=== PATIENT | female | born 1995 | race Caucasian/White ===

== ENCOUNTER 2017-01-01 10:36 | Emergency (ER) | payer SELFPAY ==
[~2017-01-01] VITALS: Ht 160 cm; Wt 54.4 kg
== END 2017-01-01 10:54 | disposition home or self-care (01) ==
LOC: ED 10:36
DX: Z00.8 Encounter for other general examination (principal)

== ENCOUNTER 2017-08-17 20:12 | Emergency (ER) | payer OTHER ==
[~2017-08-17] VITALS: Ht 160 cm; Wt 54.4 kg
[2017-08-17] MEDS ORDERED: OMEPRAZOLE20 MG PO (23:08)
--- NOTE | 2017-08-18 07:26 | EKG ---
[facility] [address] [facility] [place], [place] [address] Signed Normal sinus rhythm with sinus arrhythmia Incomplete right bundle branch block Borderline ECG No previous ECGs available Confirmed by DEACON KOTHARI MD ([id number] on 08/18/2017 7:25:57 AM Electronically Signed By: DEACON KOTHARI MD 08/18/17 0726 PATIENT NAME: SHANTELL MCELROY Electrocardiogram DATE OF : [birth year] PHYSICIAN: DEACON KOTHARI MD REPORT #: [id number] REPORT IS CONFIDENTIAL AND NOT TO BE RELEASED WITHOUT AUTHORIZATION
== END 2017-08-17 23:22 | disposition home or self-care (01) ==
LOC: ED 20:12
DX: R07.9 Chest pain, unspecified (principal); Z88.0 Allergy status to penicillin; Z88.2 Allergy status to sulfonamides; Z88.1 Allergy status to other antibiotic agents
CPT/HCPCS: 71046; 93005; 93010; 99283

== ENCOUNTER 2018-07-05 08:40 | Inpatient (IN) | payer OTHER ==
[~2018-07-05] VITALS: Ht 162.6 cm; Wt 85.0 kg
[~2018-07-05 08:40] MED LIST: OMEPRAZOLE20 MG PO
--- NOTE | 2018-07-05 11:50 | PR ---
[facility] [address] [facility] [place], [place] [address] Signed Progress Notes IP Datetime Report Generated by CPN: 07/05/2018 11:49 PROGRESS NOTES: [id number] Impression: Normal progression of labor Procedures: Artificial ROM Plan: Continue present management; Anticipate Vaginal Delivery VITAL SIGNS: [id number] Vital Signs: Reviewed; Within Normal Limits EXAM: [id number] Dilatation: 8.0 Effacement: 90 Station: -2 MEMBRANES: [id number] Membrane Status: Intact ROM Note: AROm wihtout difficulty, moderate clear fluid seen Comments: Doing well, without complainht, comfortble with Epidural Fetus A: [id number] FHR Baseline: 150 Variability: Moderate 6-25bpm Accelerations: 15X15 Presentation: Vertex Fetus B: [id number] Signing Physician: Maureen Perez MD Copies: ~ *Electronically Signed* 07/05/18 1149 MAUREEN PEREZ MD PATIENT NAME: SHANTELL BUITRAGO PROGRESS NOTE DATE OF : [birth year] PHYSICIAN: MAUREEN PEREZ MD RPT #: [id number] REPORT IS CONFIDENTIAL AND NOT TO BE RELEASED WITHOUT AUTHORIZATION
--- NOTE | 2018-07-05 15:05 | PR ---
[facility] [facility] [address] [facility] [place], [place] [address] Signed Progress Notes IP Datetime Report Generated by CPN: 07/05/2018 15:04 PROGRESS NOTES: [id number] Impression: Slow Progression of Labor Procedures: Artificial ROM Plan: Continue present management VITAL SIGNS: [id number] Vital Signs: Reviewed; Within Normal Limits EXAM: [id number] Dilatation: 9.5 Effacement: 95 Station: -2 Uterine Contractions: every 2 minutes MEMBRANES: [id number] Membrane Status: Intact ROM Note: AROm wihtout difficulty, moderate clear fluid seen Comments: Comfortable with Epidural; will try position change to see if can get cervix to progress to complete. Fetus A: [id number] FHR Baseline: 150 Variability: Moderate 6-25bpm Accelerations: 15X15 Presentation: Vertex Fetus B: [id number] Signing Physician: Maureen Perez MD Copies: ~ *Electronically Signed* 07/05/18 1504 MAUREEN PEREZ MD PATIENT NAME: SHANTELL BUITRAGO PROGRESS NOTE DATE OF : [birth year] PHYSICIAN: MAUREEN PEREZ MD RPT #: [id number] REPORT IS CONFIDENTIAL AND NOT TO BE RELEASED WITHOUT AUTHORIZATION
--- NOTE | 2018-07-05 15:35 | PR ---
[facility] [address] [facility] [place], [place] [address] Signed Progress Notes IP Datetime Report Generated by CPN: 07/05/2018 15:35 PROGRESS NOTES: [id number] Impression: Normal progression of labor Procedures: Artificial ROM Plan: Anticipate Vaginal Delivery VITAL SIGNS: [id number] Vital Signs: Reviewed; Within Normal Limits EXAM: [id number] Dilatation: 10.0 Effacement: 100 Station: 0 Uterine Contractions: every 2 minutes MEMBRANES: [id number] Membrane Status: Ruptured ROM Note: AROm wihtout difficulty, moderate clear fluid seen Comments: Beginning to push, still comfortable with Epidural Fetus A: [id number] FHR Baseline: 150 Variability: Moderate 6-25bpm Accelerations: 15X15 Presentation: Vertex Fetus B: [id number] Signing Physician: Maureen Perez MD Copies: ~ *Electronically Signed* 07/05/18 1535 MAUREEN PEREZ MD PATIENT NAME: SHANTELL BUITRAGO PROGRESS NOTE DATE OF : [birth year] PHYSICIAN: MAUREEN PEREZ MD RPT #: [id number] REPORT IS CONFIDENTIAL AND NOT TO BE RELEASED WITHOUT AUTHORIZATION
--- NOTE | 2018-07-05 16:04 | PR ---
[facility] [address] [facility] [place], [place] [address] Signed Progress Notes IP Datetime Report Generated by CPN: 07/05/2018 16:04 PROGRESS NOTES: [id number] Impression: Normal progression of labor Procedures: Artificial ROM Plan: Continue present management; Anticipate Vaginal Delivery VITAL SIGNS: [id number] Vital Signs: Reviewed; Within Normal Limits EXAM: [id number] Dilatation: 10.0 Effacement: 0 Station: 1 Uterine Contractions: everyb 2 minutes MEMBRANES: [id number] Membrane Status: Ruptured ROM Note: AROm wihtout difficulty, moderate clear fluid seen Comments: Pushing well, continue observaitona and pushing Fetus A: [id number] FHR Baseline: 150 Variability: Moderate 6-25bpm Accelerations: 15X15 Decelerations: Variable Presentation: Vertex Other Presentation: KYRA Fetus B: [id number] Signing Physician: Lei Perez MD Copies: ~ *Electronically Signed* 07/05/18 1604 LEI PEREZ MD PATIENT NAME: SHANTELL BUITRAGO PROGRESS NOTE DATE OF : [birth year] PHYSICIAN: LEI PEREZ MD RPT #: [id number] REPORT IS CONFIDENTIAL AND NOT TO BE RELEASED WITHOUT AUTHORIZATION
--- NOTE | 2018-07-06 10:53 | PR ---
[facility] [address] [facility] [place] [address] Signed PP Progress Notes Datetime Report Generated by CPN: 07/06/2018 10:53 SUBJECTIVE: [id number] Pain: Within normal limits Nausea/Vomiting: Denies Flatus: Yes Vital Signs: [id number] Vital Signs: Reviewed; Within Normal Limits Notable Details: PP HGb/Hct = 9.9/30.1 EXAM: [id number] Abdomen/Uterus: Normal Lochia: Normal Extremities: Normal IMPRESSION/PLAN/PROCEDURES: [id number] Impression: Normal progression Plan: Continue present management Procedures: None Progress Notes: Doing well, without complaint. Signing Physician: Maureen Perez MD Copies: ~ *Electronically Signed* 07/06/18 1053 MAUREEN PEREZ MD PATIENT NAME: SHANTELL BUITRAGO PROGRESS NOTE DATE OF : [birth year] PHYSICIAN: MAUREEN PEREZ MD RPT #: [id number] REPORT IS CONFIDENTIAL AND NOT TO BE RELEASED WITHOUT AUTHORIZATION
--- NOTE | 2018-07-07 11:54 | PR ---
[facility] [address] [facility] [place] [address] Signed PP Progress Notes Datetime Report Generated by CPN: 07/07/2018 11:54 SUBJECTIVE: [id number] Pain: Within normal limits Nausea/Vomiting: Denies Flatus: Yes Bowel Movement: Yes Vital Signs: [id number] Vital Signs: Reviewed; Within Normal Limits Notable Details: PP HGb/Hct = 9.9/30.1 EXAM: [id number] Abdomen/Uterus: Normal Lochia: Normal Extremities: Normal IMPRESSION/PLAN/PROCEDURES: [id number] Impression: Normal progression Plan: Discharge Procedures: None Progress Notes: Doing well, without complaint, wants to go home. Signing Physician: Maureen Perez MD Copies: ~ *Electronically Signed* 07/07/18 1154 MAUREEN PEREZ MD PATIENT NAME: SHANTELL BUITRAGO PROGRESS NOTE DATE OF : [birth year] PHYSICIAN: MAUREEN PEREZ MD RPT #: [id number] REPORT IS CONFIDENTIAL AND NOT TO BE RELEASED WITHOUT AUTHORIZATION
== END 2018-07-07 12:40 | disposition home or self-care (01) | DRG 807 ==
LOC: FBCO 08:40 → FBC 09:07
PROVIDERS: ADMIT General Practice
PROC: 10E0XZZ Delivery of Products of Conception, External Approach (ICD-10-PCS; principal; 2018-07-05)
PROC: 0HQ9XZZ Repair Perineum Skin, External Approach (ICD-10-PCS; 2018-07-05)
PROC: 0UQMXZZ Repair Vulva, External Approach (ICD-10-PCS; 2018-07-05)
PROC: 10907ZC Drainage of Amniotic Fluid, Therapeutic from Products of Conception, Via Natural or Artificial Opening (ICD-10-PCS; 2018-07-05)
PROC: 00HU33Z Insertion of Infusion Device into Spinal Canal, Percutaneous Approach (ICD-10-PCS; 2018-07-05)
PROC: 3E0R3BZ Introduction of Anesthetic Agent into Spinal Canal, Percutaneous Approach (ICD-10-PCS; 2018-07-05)
DX: O70.0 First degree perineal laceration during delivery (principal); Z37.0 Single live birth; Z3A.40 40 weeks gestation of pregnancy; Z88.0 Allergy status to penicillin; Z88.2 Allergy status to sulfonamides
CPT/HCPCS: 01960; 36415; 85027; J2590; J7120

== ENCOUNTER 2021-08-08 06:59 | Inpatient (IN) | payer BC, OTHER ==
[~2021-08-08] VITALS: Ht 162.1 cm; Wt 80.3 kg
--- NOTE | 2021-08-08 07:44 | NUR ---
RT COLLECTED RAPID COVID 19 SWAB/ FLU SWAB/ AND RSV SWAB WITH NO COMPLICATIONS AT THIS TIME.
--- NOTE | 2021-08-08 17:53 | PR ---
[facility] [address] [facility] [place], [place] [address] Signed Progress Notes IP Datetime Report Generated by CPN: 08/08/2021 17:53 PROGRESS NOTES: [id number] Impression: Normal Progression of Labor; Reassuring Heart Rate Plan: Continue Present Management; Augmentation; Anticipate Vaginal Delivery VITAL SIGNS: [id number] Vital Signs: Reviewed; Within Normal Limits EXAM: [id number] Dilatation: 8.0 Effacement: 90 Station: -1 Contractions: every 3-5 minutes MEMBRANES: [id number] Membranes Status: Ruptured Amniotic Fluid Color: Meconium, Light ROM Note: No fluid on chux w/ nitrazine test. Nitrazine positive. Comments: Slow but steady progress. Getting uncomfortable; will get Epidural redose. Continue Pitocin augmentation. FETUS A: [id number] FHR Baseline: 130 Variability: Moderate 6-25bpm Accelerations: 15X15 Presentation: Vertex FETUS B: [id number] Signing Physician: Lei Perez MD Copies: ~ *Electronically Signed* 08/08/21 1758 LEI PEREZ MD PATIENT NAME: CAROLYNN BUITRAGOTorin TOLBERT PROGRESS NOTE DATE OF : [birth year] PHYSICIAN: LEI PEREZ MD RPT #: [id number] REPORT IS CONFIDENTIAL AND NOT TO BE RELEASED WITHOUT AUTHORIZATION
--- NOTE | 2021-08-09 10:30 | PR ---
[facility] [address] [facility] [place] [address] Signed PP Progress Notes Datetime Report Generated by CPN: 08/09/2021 10:29 SUBJECTIVE: [id number] Pain: Within Normal Limits Nausea/Vomiting: Denies Vital Signs: [id number] Vital Signs: Reviewed; Within Normal Limits Notable Details: PP Hgb/Hct = 12.8/38.1 EXAM: Ongoing Abdomen/Uterus: Normal Lochia: Normal Extremities: Normal IMPRESSION/PLAN/PROCEDURES: [id number] Impression: Normal Progression Plan: Discharge Procedures: None Progress Notes: Doing well, without complaint, would like to go home today. Signing Physician: Maureen Perez MD Copies: ~ *Electronically Signed* 08/09/21 1029 MAUREEN PEREZ MD PATIENT NAME: SHANTELL BUITRAGO PROGRESS NOTE DATE OF : [birth year] PHYSICIAN: MAUREEN PEERZ MD RPT #: [id number] REPORT IS CONFIDENTIAL AND NOT TO BE RELEASED WITHOUT AUTHORIZATION
== END 2021-08-09 18:27 | disposition home or self-care (01) | DRG 807 ==
LOC: FBCO 06:59 → FBC 07:25 → US 14:00 → FBCO 14:00 → FBC 08-09 18:27
PROVIDERS: ADMIT General Practice; ATTEND General Practice
PROC: 10E0XZZ Delivery of Products of Conception, External Approach (ICD-10-PCS; principal; 2021-08-08)
PROC: 3E0R3BZ Introduction of Anesthetic Agent into Spinal Canal, Percutaneous Approach (ICD-10-PCS; 2021-08-08)
PROC: 00HU33Z Insertion of Infusion Device into Spinal Canal, Percutaneous Approach (ICD-10-PCS; 2021-08-08)
DX: O48.0 Post-term pregnancy (principal); Z37.0 Single live birth; O77.0 Labor and delivery complicated by meconium in amniotic fluid; Z3A.39 39 weeks gestation of pregnancy; Z88.0 Allergy status to penicillin; Z88.2 Allergy status to sulfonamides; O42.02 Full-term premature rupture of membranes, onset of labor within 24 hours of rupture; Z20.822 Contact with and (suspected) exposure to COVID-19
CPT/HCPCS: 36415; 85027; 86850; 86900; 86901; 87502; A9270; C9803; J2590; J2795; J3010; J7121; U0003